=== PATIENT | male | born 1985 | race Two or more races ===

== ENCOUNTER 2017-05-21 21:28 | Emergency (ER) | payer MEDICAID ==
[~2017-05-21] VITALS: Ht 180.3 cm; Wt 108.9 kg
[2017-05-21 22:23] LABS: Basophils # (auto) 0 uL; Basophils % (auto) 0.1 % (0.0-2.0); CONDITION Y; Eosinophils # (auto) 0 uL; Eosinophils % (auto) 0.6 % (0.0-7.0); Hematocrit 39.9 % (41.0-53.0); Hemoglobin 13.3 g/dL (13.5-17.5); Lymphocytes # (auto) 1.9 uL; Lymphocytes % (auto) 23.4 % (10.0-50.0); Mean Corpuscular Hemoglobin 27.6 pg (28.0-32.0); Mean Corpuscular Hgb Conc. 33.5 g/dL (32.0-36.0); Mean Corpuscular Volume 82.6 fL (80.0-100.0); Mean Platelet Volume 7.6 fL (7.4-10.4); Monocytes # (auto) 0.5 uL; Monocytes % (auto) 5.9 % (0.0-12.0); Neutrophils # (auto) 5.6 uL; Platelet Count (auto) 379 10^3/uL (140-450); Red Cell Distribution Width 13.5 % (11.6-16.0); White Blood Cell 7.9 10^3/uL (4.4-10.8)
[2017-05-21 22:45] LABS: Albumin 3.7 g/dL (3.4-5.0); Alkaline Phosphatase 65 U/L (45-117); Anion Gap 13 (5-15); Aspartate Aminotransferase 14 U/L (15-37); BUN/Creatinine Ratio 7.1; Bilirubin, Total 0.1 mg/dL (0.2-1.0); Blood Urea Nitrogen 7 mg/dL (7-18); Calcium 8.7 mg/dL (8.5-10.1); Carbon Dioxide 23 mmol/L (21-32); Chloride 102 mmol/L (98-107); GFR African American 113 mL/min; GFR Non-African American 94 mL/min; Glucose 121 mg/dL (74-106); Magnesium 2.5 mg/dL (1.6-2.6); Sodium 138 mmol/L (136-145); Total Protein 7.6 g/dL (6.4-8.2)
[2017-05-21 22:51] LABS: Potassium 2.9 mmol/L (3.5-5.1)
[2017-05-21] MEDS ORDERED: POTASSIUM CHL 20 Meq TABLET PO ONE (23:30)
[2017-05-21] MEDS ORDERED: SODIUM CHLORIDE 0.9% 1,000 ML IV ONE (23:45)
[2017-05-22] MEDS ORDERED: ACETAMINOPHEN 500 MG TAB PO ONE (00:15)
[2017-05-22] MEDS ORDERED: HYDROcodone-ACET 5/325MG TAB PO ONE (00:15)
[2017-05-22 03:30] VITALS: BP 138/70
== END 2017-05-22 03:50 | disposition home or self-care (01) ==
LOC: EDBD 21:28 → ER 21:30
DX: E87.6 Hypokalemia (principal); E86.0 Dehydration; R51 Headache; R41.82 Altered mental status, unspecified
CPT/HCPCS: 36415; 70450; 71010; 80053; 83735; 84484; 85025; 93005; 94761; 96360; 99285; J7030

== ENCOUNTER 2018-05-05 20:26 | Emergency (ER) | payer MEDICAID ==
[~2018-05-05] VITALS: Ht 172.7 cm; Wt 98.4 kg
[2018-05-05 20:46] VITALS: BP 129/84
== END 2018-05-06 01:12 | disposition home or self-care (01) ==
LOC: ER 20:29
DX: F41.9 Anxiety disorder, unspecified (principal)

== ENCOUNTER 2018-05-10 20:03 | Emergency (ER) | payer MEDICAID ==
[~2018-05-10] VITALS: Ht 167.6 cm; Wt 87.1 kg
[2018-05-10 20:35] LABS: Basophils # (auto) 0 uL; Basophils % (auto) 0.3 % (0.0-2.0); Eosinophils # (auto) 0 uL; Eosinophils % (auto) 0.2 % (0.0-7.0); Hematocrit 46.9 % (41.0-53.0); Hemoglobin 15.8 g/dL (13.5-17.5); Lymphocytes # (auto) 3.8 uL; Lymphocytes % (auto) 37.4 % (10.0-50.0); Mean Corpuscular Hemoglobin 28.7 pg (28.0-32.0); Mean Corpuscular Hgb Conc. 33.8 g/dL (32.0-36.0); Monocytes # (auto) 0.8 uL; Monocytes % (auto) 8.3 % (0.0-12.0); Neutrophils # (auto) 5.4 uL; Neutrophils % (auto) 53.8 % (37.0-80.0); Nucleated Red Blood Cells % 0.1 %; Platelet Count (auto) 403 10^3/uL (140-450); Red Blood Cells 5.51 10^6/uL (4.5-5.90); Red Cell Distribution Width 14.2 % (11.8-14.3); White Blood Cell 10.1 10^3/uL (4.4-10.8)
[2018-05-10 20:52] LABS: Albumin 4.7 g/dL (3.4-5.0); Calcium 9.5 mg/dL (8.5-10.1); Potassium 3.2 mmol/L (3.5-5.1)
[2018-05-10 20:54] LABS: BUN/Creatinine Ratio 9.1
[2018-05-10 20:56] LABS: Bilirubin, Total 0.3 mg/dL (0.2-1.0); Total Protein 9.3 g/dL (6.4-8.2)
[2018-05-10 22:15] LABS: Urine Bacteria NONE SEEN /hpf (None Seen); Urine Blood 2+ /uL (Negative); Urine Mucus FEW (None Seen); Urine Specific Gravity 1.024 (1.001-1.035); Urine WBC 2 /hpf (0 - 3)
[2018-05-10 22:28] LABS: Alcohol, Urine < 3.0 mg/dL (0-5); Amphetamine Screen, Urine NEGATIVE (NEGATIVE); Barbiturate Scree,Urine NEGATIVE (NEGATIVE); Benzodiazephine Screen, Urine POSITIVE (NEGATIVE); Cannabinoid Screen, Urine NEGATIVE (NEGATIVE); Cocaine Screen, Urine NEGATIVE (NEGATIVE); Opiate Scree,Urine NEGATIVE (NEGATIVE); Phencyclidine Screen, Urine NEGATIVE (NEGATIVE)
[2018-05-10 22:50] VITALS: BP 131/86
== END 2018-05-11 00:36 | disposition home or self-care (01) ==
LOC: ER 20:03 → EDBD 20:03 → ER 05-11 00:36
DX: G40.909 Epilepsy, unspecified, not intractable, without status epilepticus (principal); F41.9 Anxiety disorder, unspecified
CPT/HCPCS: 36415; 70450; 71045; 72125; 80053; 80307; 80320; 81001; 83880; 84484; 85025; 93005; 94761

== ENCOUNTER 2023-01-30 10:10 | Emergency (ER) | payer MEDICAID ==
[~2023-01-30] VITALS: Ht 175.3 cm; Wt 114.2 kg
[2023-01-30 10:39] VITALS: BP 142/97
[2023-01-30] MEDS ORDERED: cefTRIAXone SOD 1,000 MG VL IM ONE (11:00)
[2023-01-30] MEDS ORDERED: LIDOCAINE 1% HCL (LOCAL ANESTH.) INJ 20ML MDV IJ ONE (11:00)
[2023-01-30] MEDS ORDERED: IBUP800T27 PO (11:05)
[2023-01-30] MEDS ORDERED: BACDST PO (11:05)
== END 2023-01-30 11:24 | disposition home or self-care (01) ==
LOC: ER 10:10
DX: L02.212 Cutaneous abscess of back [any part, except buttock and flank] (principal)
CPT/HCPCS: 10060; 87205; 96372; 99283; J0696; J2001